=== PATIENT | female | born 1960 | race Caucasian/White ===

== ENCOUNTER 2020-12-02 16:13 | Outpatient (REF) | payer OTHER, SELFPAY ==
--- NOTE | ~2020-12-02 | XR_ITS ---
EXAMINATION: XR SHOULDER, LEFT CLINICAL INFORMATION: Trauma, pain COMPARISON: None TECHNIQUE: Left shoulder is imaged in 2 views. FINDINGS: There is a fracture surgical neck of the humerus with probable mild comminution medial side. The distal fracture fragment is displaced medially by one half bone diameter and anteriorly by approximately one half bone diameter. There is no dislocation or destructive process. The acromioclavicular alignment is normal. Left lung apex is clear and shows no pneumothorax or pleural reaction. XR/XR shoulder LT min 2V IMPRESSION: Proximal humeral fracture.
== END 2020-12-02 16:14 | disposition home or self-care (01) ==
LOC: HO.HMGCX 16:13
PROVIDERS: Visit Provider Physician Assistant Medical
DX: S49.92XA Unspecified injury of left shoulder and upper arm, initial encounter (principal)
CPT/HCPCS: 73030

== ENCOUNTER 2020-12-02 17:08 | Emergency (ER) | payer OTHER, SELFPAY ==
[2020-12-02 17:30] VITALS: BP 126/76; PULSE 94; RESP 18; TEMP 36.8; O2SAT 98; BMI 32.1
[2020-12-02 21:14] VITALS: BP 154/77; PULSE 96; RESP 18; O2SAT 99
--- NOTE | 2020-12-02 22:26 | ED.EXTPRO ---
HPI - Extremity Problem General Chief complaint: Extremity Problem Stated complaint: Arm injury Time Seen by Provider: 12/02/20 22:00 Source: patient Mode of arrival: ambulatory Limitations: no limitations History of Present Illness HPI Narrative: 60-year-old female who presents emergency department for evaluation a proximal humerus fracture. The patient states that last night around 8:00 p.m. she was walking and tripped and fell. She landed on her left shoulder the patient states that she developed immediate pain in the shoulder which is worse with movement. The patient went to the [facility] and had an x-ray which revealed fracture of the surgical neck of the proximal humerus with displacement of the distal medial fragment without dislocation or injury to the acromioclavicular joint. The patient was placed in a sling. The patient was then referred to the emergency department for further evaluation. The patient denied any other injury. Patient states she had a fracture to the right proximal humerus and had a surgical repair done by Dr. Shell. Related Data Home Medications Medication Instructions Recorded Confirmed aspirin 81 mg tablet,delayed 81 mg PO DAILY 12/02/20 release (Adult Aspirin Regimen) atorvastatin 10 mg tablet 10 mg PO BEDTIME 12/02/20 hydrochlorothiazide 12.5 mg capsule 12.5 mg PO DAILY 12/02/20 sertraline 100 mg tablet 100 mg PO DAILY 12/02/20 Previous Rx's Medication Instructions Recorded oxycodone 5 mg tablet 5 mg PO Q4H PRN #14 tab 12/02/20 Allergies Allergy/AdvReac Type Severity Reaction Status Date / Time No Known Allergies Allergy Verified 12/02/20 16:02 [No Known Allergies*] Review of Systems Review of Systems: Yes all other systems are reviewed and are negative [facility] Past Medical History [facility] Narrative: Past medical history: Patient states that she had a stroke and a heart attack 8 years ago. She has history of high cholesterol as well. Surgical history: Surgical repair of the right proximal humerus by Dr. Shell. Social history: The patient denies tobacco use. She occasionally drinks alcohol. She denies drug use. Medical History Anxiety HTN (hypertension) Hypercholesteremia Social History Social History Advance Directives: No Advance Directives Information Provided: No Physical Exam Vital Signs: Vital Signs: Last Vital Signs Temp 98.2 F 12/02/20 17:30 Pulse 96 12/02/20 21:14 Resp 18 12/02/20 21:14 BP 154/77 H 12/02/20 21:14 Pulse Ox 99 12/02/20 21:14 Body Mass Index 32.1 Const: Other: Very pleasant and cooperative female patient, answers all questions appropriately HENMT: Head: Yes normal to inspection, Yes normocephalic and Yes atraumatic Eyes: General: appearance normal, both eyes and all related structures Neck: Other: No C-spine tenderness, no tenderness palpation of the trapezius muscles. Chest: Chest palpation & inspection: normal inspection of the chest and normal palpation of entire chest wall Resp: Effort & Inspection: normal respiratory effort Extrem: Other: The patient has no tenderness palpation of the sternum or over the clavicle. Left upper extremity evaluation revealed tenderness palpation over the acromioclavicular joint and over the proximal humerus. The patient has normal pulses, normal light touch. Course Course Course Narrative: 60-year-old female who fell last night around 8:00 p.m. injuring her left shoulder, she was evaluated at the walk-in clinic and found to have a comminuted displaced fracture of the proximal humerus, she was placed in a sling and referred to the emergency department for evaluation. Here in the emergency department the patient has no significant injuries except for her shoulder injury. I did review the x-rays, the patient has no dislocation or injury of the acromioclavicular joint. She does have a 2 or 3 part proximal humerus fracture which does not need to be reduced at this time. The patient was advised to stay in the sling until she can follow-up with Dr. Shell. The patient was advised to take Tylenol 1000 mg every 6 hours as needed for pain and for pain not relieved by Tylenol she was advised to take oxycodone 5 mg every 4 hours as needed for pain. I did ask her to discuss the use of NSAIDs in fractures with Dr. Shell to see if he feels that with the appropriate for her to take ibuprofen. Discharge Plan Discharge Clinical Impression: Proximal humerus fracture Patient Disposition: Home, Self-Care Instructions: Proximal Humerus Fracture (ED) Additional Instructions: Wear the sling until you are re-evaluated by Dr. Shell. Call his office tomorrow morning to try to arrange follow-up within 1 week. You can tell the office that you have a fracture (broken bone) of the surgical neck of the proximal humerus with no injury to the AC joint and no dislocation. Take ibuprofen 200 mg pills, 3 pills every 6 hours as needed for pain. Take Tylenol (acetaminophen) 500 mg pills, 2 pills every 4-6 hours as needed for pain. For pain not relieved by ibuprofen or Tylenol take oxycodone 5 mg pills, 1 pill every 4 hours as needed for pain. Do not drive or work while taking this medication since they can cause sleepiness. Oxycodone is a narcotic medication that can be addicting. If you are concerned about addiction you can ask the pharmacist for less pills or do not get this prescription filled. When you talk to Dr. Richter's office, ask the staff if Dr. Shell approves taking ibuprofen in people that have broken bones, if he does not want you to take ibuprofen then only take Tylenol and oxycodone. Prescriptions: New oxycodone 5 mg tablet 5 mg PO Q4H PRN (Reason: pain) Qty: 14 RF: 0
== END 2020-12-02 22:52 | disposition home or self-care (01) ==
PROVIDERS: Emergency Provider Emergency Medicine Emergency Medical Services
DX: S42.202A Unspecified fracture of upper end of left humerus, initial encounter for closed fracture (principal); I10 Essential (primary) hypertension; W01.0XXA Fall on same level from slipping, tripping and stumbling without subsequent striking against object, initial encounter; Y93.01 Activity, walking, marching and hiking; Y92.9 Unspecified place or not applicable; Y99.9 Unspecified external cause status
CPT/HCPCS: 99284

== ENCOUNTER 2020-12-10 07:57 | Outpatient (REF) | payer OTHER, SELFPAY ==
--- NOTE | ~2020-12-10 | XR_ITS ---
EXAMINATION: XR SHOULDER, LEFT CLINICAL INFORMATION: Fracture COMPARISON: Previous x-ray 12/02/2020 TECHNIQUE: Two views of the left shoulder. FINDINGS: There is a comminuted slightly impacted left surgical humeral neck fracture that appears unchanged from 12/02/2020. There is anterior and medial displacement of the humeral shaft with respect to the humeral head that is unchanged. No bony callus formation is seen. The humeral head is slightly low with respect to the glenoid. This may be related to joint effusion. There is mild arthritis at the acromioclavicular joint. There is overlying soft tissue swelling. XR/XR shoulder LT min 2V IMPRESSION: No change in comminuted, abdomen displaced left humeral neck fracture from earlier exam.
== END 2020-12-10 07:58 | disposition home or self-care (01) ==
LOC: HO.HOSX 07:57
PROVIDERS: Visit Provider Physician Assistant
DX: S42.202A Unspecified fracture of upper end of left humerus, initial encounter for closed fracture (principal)
CPT/HCPCS: 73030

== ENCOUNTER 2021-01-07 07:09 | Outpatient (REF) | payer OTHER, SELFPAY ==
--- NOTE | ~2021-01-07 | XR_ITS ---
EXAMINATION: XR SHOULDER, LEFT CLINICAL INFORMATION: M25.519 - Pain in unspecified shoulder COMPARISON: Radiographs left shoulder 12/10/2020, 12/02/2020 TECHNIQUE: Left shoulder is imaged in 2 views. FINDINGS: Proximal left humeral fracture fragments are similar in alignment to prior exam. Again, there is mild medial displacement distal fracture fragment. There is some interval callus formation medial and lateral sides of the fracture site. Again, the humeral head seats flow in the glenoid fossa which may related to effusion. The acromioclavicular alignment is normal. XR/XR shoulder LT min 2V IMPRESSION: No change in alignment proximal left humeral fracture. Some early callus formation demonstrated.
== END 2021-01-07 07:10 | disposition home or self-care (01) ==
LOC: HO.HOSX 07:09
PROVIDERS: Visit Provider Physician Assistant
DX: S42.202D Unspecified fracture of upper end of left humerus, subsequent encounter for fracture with routine healing (principal)
CPT/HCPCS: 73030

== ENCOUNTER 2021-02-25 07:42 | Outpatient (REF) | payer OTHER, SELFPAY ==
--- NOTE | ~2021-02-25 | XR_ITS ---
EXAMINATION: XR SHOULDER, LEFT CLINICAL INFORMATION: Pain and unspecified shoulder COMPARISON: Shoulder radiographs 01/07/2021 TECHNIQUE: AP and lateral scapular Y views of the left shoulder of the left shoulder. FINDINGS: Redemonstration of impacted left proximal humeral fracture with minimal interval bony remodeling. Alignment is essentially unchanged from the prior study. The shoulder remains in alignment. The acromioclavicular joint is unremarkable. XR/XR shoulder LT min 2V IMPRESSION: Minimal to no change in the appearance of impacted proximal left humeral fracture.
== END 2021-02-25 07:43 | disposition home or self-care (01) ==
LOC: HO.HOSX 07:42
PROVIDERS: Visit Provider Physician Assistant
DX: M25.512 Pain in left shoulder (principal); S42.202A Unspecified fracture of upper end of left humerus, initial encounter for closed fracture; X58.XXXA Exposure to other specified factors, initial encounter; Y93.9 Activity, unspecified; Y92.9 Unspecified place or not applicable; Y99.8 Other external cause status; I10 Essential (primary) hypertension; E78.00 Pure hypercholesterolemia, unspecified; F41.9 Anxiety disorder, unspecified
CPT/HCPCS: 73030

== ENCOUNTER 2021-04-03 09:00 | Outpatient (RCR) | payer OTHER, SELFPAY ==
--- NOTE | 2021-03-04 10:27 | MHC.PT.EP ---
[facility] [place] Office [place] Office [place] Office [address] [phone] F: [phone] F: [phone] F: [phone] F: [phone] Physical Therapy Plan of Care Date of Evaluation: 03/04/21 Date of Surgery: n/a Diagnosis: left proximal humeral fracture Assessment: The patient arrived reporting left shoulder pain, decreased ROM, and strength consistent with her current injury. She has decreased functional reaching, modified functional independence. She is an excellent candidate for skilled PT. She was educated on importance of frequent performance of HEP. Frequency and Duration: The patient will be seen 2x/week x 8 weeks. Short Term Goals: Pt to be able to report 50% improvement in functional reaching. - Pt to be able to report 50% less pain with getting dressed. Alf Goals: 8 weeks ? The patient to be able to return to all functional reaching, self care ADL's without any limitation from pain or loss of ROM. 8 weeks - The patient to be able to manage her HEP by herself. Treatment Plan: Modalities to reduce pain, spasms and effusion. Manual therapy to restore motion and function. Therapeutic exercise to improve strength and flexibility. Neuromuscular re-education for posture and balance. Therapeutic activities to return to functional activities of daily living. Electronically signed by: Corina Merritt PT DPT Please sign and return to therapist. Thank you for your referral.
== END 2021-06-24 13:59 | disposition home or self-care (01) ==
LOC: HO.PT 09:00
PROVIDERS: PCP Internal Medicine; Visit Provider Physician Assistant
DX: S42.202D Unspecified fracture of upper end of left humerus, subsequent encounter for fracture with routine healing (principal)
CPT/HCPCS: 97110; 97140; 97162; 97530

== ENCOUNTER 2021-04-08 07:06 | Outpatient (REF) | payer OTHER, SELFPAY ==
--- NOTE | ~2021-04-08 | XR_ITS ---
EXAMINATION: XR SHOULDER, LEFT CLINICAL INFORMATION: Left shoulder pain. COMPARISON: Left shoulder 02/25/2021 and 01/07/2021. TECHNIQUE: 2 views of the left shoulder. FINDINGS: There is an impacted left proximal humeral fracture without dislocation. Minimal callus formation is seen around the fracture site. The soft tissues are normal. XR/XR shoulder LT min 2V IMPRESSION: Slowly healing left proximal humeral fracture with callus formation. No change from the last 2 exams.
== END 2021-04-08 07:07 | disposition home or self-care (01) ==
LOC: HO.HOSX 07:06
PROVIDERS: Visit Provider Physician Assistant
DX: S42.202A Unspecified fracture of upper end of left humerus, initial encounter for closed fracture (principal)
CPT/HCPCS: 73030